=== PATIENT | male | born 1995 | race Caucasian/White ===

== ENCOUNTER 2022-10-19 07:52 | Outpatient (CLI) | payer OTHER, SELFPAY | END 2022-10-19 07:53 | disposition home or self-care (01) | PROVIDERS: PCP Family Medicine; Referring Provider Family Medicine; Visit Provider Family Medicine | DX: Z13.1 Encounter for screening for diabetes mellitus (principal); Z13.6 Encounter for screening for cardiovascular disorders | CPT/HCPCS: 80061; 82947 ==

== ENCOUNTER 2022-10-21 14:31 | Outpatient (CLI) | payer OTHER, SELFPAY | END 2022-10-21 14:32 | disposition home or self-care (01) | LOC: NFLDREF 14:34 | PROVIDERS: PCP Family Medicine; Visit Provider Family Medicine | DX: Z00.00 Encounter for general adult medical examination without abnormal findings (principal); R07.89 Other chest pain | CPT/HCPCS: 84443 ==